=== PATIENT | female | born 1975 | race Two or more races ===

== ENCOUNTER → 2019-10-08 | Day surgery (SDC) | payer OTHER ==
[~2019-10-08] MED LIST: ALLERGY RELIEF10 M3 PO; COZAAR50 MG PO; DULOXETINE PO; PERCOCET 5-3251 EACH PO; POLY119PG PO; SURFAK240 M1 PO
== END | disposition home or self-care (01) ==
LOC: ADM 10-01 09:30 → CIR.AMB 07:00
PROVIDERS: ATTEND Surgery
DX: K80.10 Calculus of gallbladder with chronic cholecystitis without obstruction (principal); K42.9 Umbilical hernia without obstruction or gangrene; Z20.828 Contact with and (suspected) exposure to other viral communicable diseases